=== PATIENT | male | born 1945 | race Caucasian/White ===

== ENCOUNTER 2019-01-26 14:22 | Outpatient (RCR) | payer OTHER, MEDICARE, SELFPAY | END 2019-01-26 19:00 | disposition home or self-care (01) | LOC: PT 14:22 | PROVIDERS: Family Provider Internal Medicine; PCP Internal Medicine; Referring Provider Internal Medicine; Visit Provider Internal Medicine | DX: R42 Dizziness and giddiness (principal) | CPT/HCPCS: 97162 ==

== ENCOUNTER 2020-03-07 13:00 | Outpatient (RCR) | payer OTHER, MEDICARE, SELFPAY ==
[2020-02-28 12:12] VITALS: BMI 29.7
--- NOTE | 2020-02-28 13:17 | HP.PTEVAL ---
Patient's Visit Information SHARON LEVINE is a 74 year old M referred to Physical Therapy by BRENNEN Moreno with a diagnosis of BPPV. Date of Evaluation: 02/28/20 Physical Therapist: Ayush Anderson, ALEXEIT, OCS, CSCS - Visit Plan Frequency: 1x/Week Duration: 2-4 Weeks Plan: weekly x 2-4 as needed for. postional treatments and other vestibular if needed. - Subjective Started getting dizzyness ith lying down, Feels off most of time. Lying at night he spins for 20 seconds. Has been there for a couple weeks and has had it before. Gets this usually on L and avoids left side sleep , thinks it is on R this time. Makes him miserable all day. [place] slightly better since it started, Dramamine can help. Not employed. Sleeping Ok with CPAP. Spends day tinkering in yard and cars. Hard to do because of this. Getting basic ADLS done but slow and miserable. - Objective Walks normal and trasnfers chair normal. Steps reciprocal with one rail. Balance appears good, neck is stiff but functionally mobile. - L hallpike darling. + r hallpike darling for up torsional nystagmus 5 seconds,. Treated 2x with R rojelio then gone. - Goals Goal 1:: abolish dizzzyness Goal Time Frame: 2-4 Weeks Goal 2:: Sleep R side without problems Goal Time Frame: 2-4 Weeks Goal 3:: Pt back to normal acitivites at home at normal speeds and 100% better Goal Time Frame: 2-4 Weeks - Rehabilitation Potential Physical Therapy Diagnosis: BPPV R Rehabilitation Potential: Good - Anticipated Interventions Patient/Client Instruction: Educate patient on: Condition, Plan of Care For the Purpose of:: To increase tolerance to activity/condition/position Comment: positional treatemnts /ex For the Purpose of:: To increase tolerance to activity/condition/position Thank you for the opportunity to evaluate your patient. For Medicare and Medicare HMO plans, please review the plan of care and approve it. It will need to be FAXED BACK to us at [phone] for Medicare purposes. For Medicare only, by signing this I certify the plan of care. Please let me know if there are questions or concerns regarding this plan of care. Physician Signature: Date:
--- NOTE | 2020-05-29 15:42 | HP.PT.NRP ---
SHARON LEVINE was seen in my office for initial evaluation on 02/28/20. The following Plan of Care was established for this patient: Initial Frequency: 1x/Week Initial Duration: 2-4 Weeks Patient/Client Instruction: Educate patient on: Condition, Plan of Care For the Purpose of:: To increase tolerance to activity/condition/position For the Purpose of:: To increase tolerance to activity/condition/position This patient was last seen in our office 03/07/20. Pertinent comments regarding their Physical therapy will appear below: Pt seen two visits for positional treatments. Was doing wella t last session and was to call by 03/26 if dizzyness returned. at this point, it has been over 6 weeks and I will discontinue due to nonattendance. At this point I will be discontinuing this patient from physical therapy. I would be happy to see this patient again in the future if found appropriate by the physician. Thank you! Ayush Anderson, DPT, OCS, CSCS
== END 2020-03-07 19:00 | disposition home or self-care (01) ==
LOC: PT 13:00
PROVIDERS: PCP Internal Medicine; Referring Provider Physician Assistant Surgical; Visit Provider Physician Assistant Surgical
DX: H81.13 Benign paroxysmal vertigo, bilateral (principal)
CPT/HCPCS: 97161; 97530